=== PATIENT | male | born 1980 | race Two or more races ===

== ENCOUNTER 2020-07-07 13:13 | Emergency (ER) | payer MEDICAID, OTHER ==
[~2020-07-07] VITALS: Ht 152.4 cm; Wt 72.6 kg
[2020-07-07 13:32] VITALS: BP 124/81
== END 2020-07-07 15:40 | disposition home or self-care (01) ==
LOC: ER 13:13
DX: J20.9 Acute bronchitis, unspecified (principal); Z20.828 Contact with and (suspected) exposure to other viral communicable diseases
CPT/HCPCS: 36415; 71045; 87426